=== PATIENT | female | born 2000 | race Two or more races ===

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

== ENCOUNTER 2019-04-17 10:08 | Emergency (ER) | payer MEDICAID ==
[~2019-04-17] VITALS: Ht 160 cm; Wt 59.0 kg
[~2019-04-17 10:08] MED LIST: PREN-96 PO
[2019-04-17 12:57] VITALS: BP 112/77
[2019-04-17] MEDS ORDERED: cefTRIAXone SOD 1,000 MG VL IM ONE (13:30)
== END 2019-04-17 14:02 | disposition home or self-care (01) ==
LOC: ER 10:08
DX: J03.90 Acute tonsillitis, unspecified (principal)
CPT/HCPCS: 81002; 81025; 96372; 99283; J0696

== ENCOUNTER 2019-12-17 18:16 | Emergency (ER) | payer MEDICAID ==
[~2019-12-17] VITALS: Ht 160 cm; Wt 63.5 kg
[2019-12-17 19:21] LABS: Eosinophils # (auto) 0.2 10 ^3/uL (0-0.8); Eosinophils % (auto) 1.6 % (0.0-7.0); White Blood Cell 13.5 10^3/uL (4.4-10.8)
[2019-12-17 19:22] LABS: Basophils # (auto) 0.1 10 ^3/uL (0-0.2); Basophils % (auto) 0.6 % (0.0-2.0); Hemoglobin 13.4 g/dL (12.2-16.2); Lymphocytes # (auto) 3.8 10 ^3/uL (0.4-5.4); Lymphocytes % (auto) 27.8 % (10.0-50.0); Mean Corpuscular Hemoglobin 25.1 pg (28.0-32.0); Mean Corpuscular Hgb Conc. 33.5 g/dL (32.0-36.0); Monocytes # (auto) 0.7 10 ^3/uL (0-1.3); Neutrophils # (auto) 8.8 10 ^3/uL (1.6-8.6); Nucleated Red Blood Cells % 0.1 %; Platelet Count (auto) 371 10^3/uL (140-450); Red Blood Cells 5.33 10^6/uL (4.0-5.20); Red Cell Distribution Width 14.3 % (11.8-14.3)
[2019-12-17 19:40] LABS: Albumin 4.1 g/dL (3.4-5.0); Calcium 8.8 mg/dL (8.5-10.1); Potassium 3.4 mmol/L (3.5-5.1)
[2019-12-17 19:43] LABS: BUN/Creatinine Ratio 14.9; Bilirubin, Total 0.2 mg/dL (0.2-1.0); Total Protein 7.8 g/dL (6.4-8.2)
[2019-12-17] MEDS ORDERED: POTASSIUM CHL 20 Meq TABLET PO ONE (20:00)
[2019-12-17 21:09] LABS: Urine Bacteria NONE SEEN /hpf (None Seen); Urine Blood 3+ /uL (Negative); Urine WBC 9 /hpf (0 - 5)
[2019-12-17 21:15] LABS: Amphetamine Screen, Urine NEGATIVE (NEGATIVE); Barbiturate Scree,Urine NEGATIVE (NEGATIVE); Benzodiazephine Screen, Urine NEGATIVE (NEGATIVE); Cannabinoid Screen, Urine NEGATIVE (NEGATIVE); Cocaine Screen, Urine NEGATIVE (NEGATIVE); Opiate Scree,Urine NEGATIVE (NEGATIVE); Phencyclidine Screen, Urine NEGATIVE (NEGATIVE)
[2019-12-17] MEDS ORDERED: cefTRIAXone SOD 1,000 MG VL IM ONE (21:45)
[2019-12-17 22:13] VITALS: BP 120/86
== END 2019-12-17 22:24 | disposition home or self-care (01) ==
LOC: ER 18:16
DX: N39.0 Urinary tract infection, site not specified (principal); N93.8 Other specified abnormal uterine and vaginal bleeding; E87.6 Hypokalemia; E86.0 Dehydration
CPT/HCPCS: 36415; 76830; 76856; 80053; 80307; 81001; 84702; 85025; 96372; 99284; J0696

== ENCOUNTER 2020-08-02 13:19 | Emergency (ER) | payer MEDICAID ==
[~2020-08-02] VITALS: Ht 160 cm; Wt 62.1 kg
[2020-08-02 13:45] VITALS: BP 130/83
[2020-08-02 13:54] LABS: Urine Bacteria MANY /hpf (None Seen); Urine Blood 1+ /uL (Negative); Urine Hyaline Cast FEW /lpf (0 - 2); Urine Mucus FEW (None Seen); Urine Specific Gravity 1.025 (1.001-1.035); Urine WBC 21 /hpf (0 - 5)
[2020-08-02 14:17] LABS: Basophils # (auto) 0.1 10 ^3/uL (0-0.2); Basophils % (auto) 0.7 % (0.0-2.0); Eosinophils # (auto) 0.1 10 ^3/uL (0-0.8); Eosinophils % (auto) 1.9 % (0.0-7.0); Hematocrit 38.7 % (36.0-46.0); Hemoglobin 13.1 g/dL (12.2-16.2); Lymphocytes # (auto) 2.5 10 ^3/uL (0.4-5.4); Lymphocytes % (auto) 33.6 % (10.0-50.0); Mean Corpuscular Hemoglobin 25.9 pg (28.0-32.0); Mean Corpuscular Hgb Conc. 33.8 g/dL (32.0-36.0); Mean Corpuscular Volume 76.8 fL (80.0-100.0); Monocytes # (auto) 0.4 10 ^3/uL (0-1.3); Monocytes % (auto) 4.7 % (0.0-12.0); Neutrophils # (auto) 4.5 10 ^3/uL (1.6-8.6); Neutrophils % (auto) 59.1 % (37.0-80.0); Nucleated Red Blood Cells % 0.1 %; Platelet Count (auto) 313 10^3/uL (140-450); Red Blood Cells 5.04 10^6/uL (4.0-5.20); White Blood Cell 7.5 10^3/uL (4.4-10.8)
[2020-08-02] MEDS ORDERED: cefTRIAXone SOD 1,000 MG VL IM ONE (14:45)
== END 2020-08-02 15:09 | disposition home or self-care (01) ==
LOC: ER 13:19
DX: O23.41 Unspecified infection of urinary tract in pregnancy, first trimester (principal); Z3A.01 Less than 8 weeks gestation of pregnancy
CPT/HCPCS: 36415; 81001; 81025; 84702; 85025; 96372; 99283; J0696

== ENCOUNTER 2020-08-04 16:31 | Emergency (ER) | payer MEDICAID ==
[~2020-08-04] VITALS: Ht 160 cm; Wt 63.5 kg
[2020-08-04 16:32] VITALS: BP 122/80
== END 2020-08-04 18:56 | disposition home or self-care (01) ==
LOC: ER 16:31
DX: O02.81 Inappropriate change in quantitative human chorionic gonadotropin (hCG) in early pregnancy (principal); Z3A.01 Less than 8 weeks gestation of pregnancy; Z79.899 Other long term (current) drug therapy
CPT/HCPCS: 36415; 84702

== ENCOUNTER 2020-08-11 16:12 | Emergency (ER) | payer MEDICAID ==
[~2020-08-11] VITALS: Ht 157.5 cm; Wt 63.5 kg
[2020-08-11 16:48] LABS: Urine Bacteria MANY /hpf (None Seen); Urine Blood Negative /uL (Negative); Urine Mucus FEW (None Seen); Urine Specific Gravity 1.016 (1.001-1.035)
[2020-08-11 16:53] LABS: Urine WBC 18 /hpf (0 - 5)
[2020-08-11 20:01] VITALS: BP 141/104
== END 2020-08-11 20:06 | disposition home or self-care (01) ==
LOC: ER 16:12
DX: O20.0 Threatened abortion (principal); O20.8 Other hemorrhage in early pregnancy; O23.41 Unspecified infection of urinary tract in pregnancy, first trimester; Z79.899 Other long term (current) drug therapy; Z3A.01 Less than 8 weeks gestation of pregnancy
CPT/HCPCS: 36415; 76801; 76817; 81001; 84702

== ENCOUNTER 2020-08-22 08:23 | Emergency (ER) | payer MEDICAID ==
[~2020-08-22] VITALS: Ht 160 cm; Wt 72.6 kg
[2020-08-22 09:09] LABS: Urine Bacteria FEW /hpf (None Seen); Urine Blood Negative /uL (Negative); Urine Specific Gravity 1.011 (1.001-1.035); Urine WBC 3 /hpf (0 - 5)
[2020-08-22 09:28] VITALS: BP 128/78
[2020-08-22] MEDS ORDERED: ACETAMINOPHEN 500 MG TAB PO ONE (09:45)
== END 2020-08-22 11:28 | disposition home or self-care (01) ==
LOC: ER 08:23
DX: O20.0 Threatened abortion (principal); O23.41 Unspecified infection of urinary tract in pregnancy, first trimester; Z3A.01 Less than 8 weeks gestation of pregnancy
CPT/HCPCS: 36415; 76801; 76817; 81001; 84702

== ENCOUNTER 2020-08-27 12:05 | Emergency (ER) | payer MEDICAID ==
[~2020-08-27] VITALS: Ht 160 cm; Wt 72.6 kg
[2020-08-27 13:05] LABS: Urine Bacteria NONE SEEN /hpf (None Seen); Urine Blood 3+ /uL (Negative); Urine Hyaline Cast FEW /lpf (0 - 2); Urine Specific Gravity 1.021 (1.001-1.035); Urine WBC 2 /hpf (0 - 5)
[2020-08-27 13:42] LABS: Basophils # (auto) 0.1 10 ^3/uL (0-0.2); Basophils % (auto) 0.7 % (0.0-2.0); Eosinophils # (auto) 0.2 10 ^3/uL (0-0.8); Monocytes # (auto) 0.4 10 ^3/uL (0-1.3); Neutrophils # (auto) 4.2 10 ^3/uL (1.6-8.6); White Blood Cell 7.7 10^3/uL (4.4-10.8)
[2020-08-27 13:44] LABS: Eosinophils % (auto) 2.9 % (0.0-7.0); Hemoglobin 12.6 g/dL (12.2-16.2); Lymphocytes # (auto) 2.8 10 ^3/uL (0.4-5.4); Lymphocytes % (auto) 36.7 % (10.0-50.0); Mean Corpuscular Hgb Conc. 33.3 g/dL (32.0-36.0); Mean Corpuscular Volume 78.1 fL (80.0-100.0); Monocytes % (auto) 5.3 % (0.0-12.0); Neutrophils % (auto) 54.4 % (37.0-80.0); Nucleated Red Blood Cells % 0.1 %; Platelet Count (auto) 327 10^3/uL (140-450); Red Blood Cells 4.86 10^6/uL (4.0-5.20); Red Cell Distribution Width 15.2 % (11.8-14.3)
[2020-08-27 13:45] LABS: Albumin 3.7 g/dL (3.4-5.0)
[2020-08-27 13:49] LABS: BUN/Creatinine Ratio 15.3; Bilirubin, Total 0.4 mg/dL (0.2-1.0); Total Protein 7.2 g/dL (6.4-8.2)
[2020-08-27 15:50] VITALS: BP 129/79
== END 2020-08-27 16:09 | disposition home or self-care (01) ==
LOC: ER 12:05
DX: O20.8 Other hemorrhage in early pregnancy (principal); O23.41 Unspecified infection of urinary tract in pregnancy, first trimester; Z3A.01 Less than 8 weeks gestation of pregnancy
CPT/HCPCS: 36415; 76801; 76817; 80053; 81001; 84702; 85025

== ENCOUNTER 2020-09-12 14:38 | Emergency (ER) | payer MEDICAID ==
[~2020-09-12] VITALS: Ht 160 cm; Wt 72.6 kg
[2020-09-12 16:22] LABS: Basophils # (auto) 0 10 ^3/uL (0-0.2); Basophils % (auto) 0.6 % (0.0-2.0); Eosinophils # (auto) 0.2 10 ^3/uL (0-0.8); Eosinophils % (auto) 2.6 % (0.0-7.0); Hematocrit 36.3 % (36.0-46.0); Hemoglobin 12.4 g/dL (12.2-16.2); Lymphocytes # (auto) 2.9 10 ^3/uL (0.4-5.4); Lymphocytes % (auto) 37.3 % (10.0-50.0); Mean Corpuscular Hemoglobin 26.1 pg (28.0-32.0); Mean Corpuscular Volume 76.8 fL (80.0-100.0); Monocytes # (auto) 0.5 10 ^3/uL (0-1.3); Monocytes % (auto) 6.2 % (0.0-12.0); Neutrophils # (auto) 4.2 10 ^3/uL (1.6-8.6); Neutrophils % (auto) 53.3 % (37.0-80.0); Nucleated Red Blood Cells % 0.2 %; Platelet Count (auto) 319 10^3/uL (140-450); Red Blood Cells 4.73 10^6/uL (4.0-5.20); Red Cell Distribution Width 14.6 % (11.8-14.3); White Blood Cell 7.9 10^3/uL (4.4-10.8)
[2020-09-12 17:50] VITALS: BP 126/80
[2020-09-12 19:07] LABS: Urine Bacteria NONE SEEN /hpf (None Seen); Urine Blood Negative /uL (Negative); Urine Specific Gravity 1.016 (1.001-1.035); Urine WBC <1 /hpf (0 - 5)
== END 2020-09-12 18:19 | disposition home or self-care (01) ==
LOC: ER 14:38
DX: O03.4 Incomplete spontaneous abortion without complication (principal); Z79.899 Other long term (current) drug therapy; Z3A.01 Less than 8 weeks gestation of pregnancy
CPT/HCPCS: 36415; 81001; 84702; 85025

== ENCOUNTER 2021-05-20 11:39 | Emergency (ER) | payer MEDICAID ==
[~2021-05-20] VITALS: Ht 160 cm; Wt 65.8 kg
[2021-05-20 13:33] LABS: Basophils # (auto) 0 10 ^3/uL (0-0.2); Eosinophils # (auto) 0.2 10 ^3/uL (0-0.8); Hemoglobin 13.3 g/dL (12.2-16.2); Monocytes # (auto) 0.4 10 ^3/uL (0-1.3)
[2021-05-20 13:35] LABS: Basophils % (auto) 0.8 % (0.0-2.0); Eosinophils % (auto) 2.4 % (0.0-7.0); Hematocrit 39.6 % (36.0-46.0); Lymphocytes # (auto) 2.7 10 ^3/uL (0.4-5.4); Lymphocytes % (auto) 42.3 % (10.0-50.0); Mean Corpuscular Hemoglobin 25.6 pg (28.0-32.0); Mean Corpuscular Hgb Conc. 33.7 g/dL (32.0-36.0); Mean Corpuscular Volume 76.1 fL (80.0-100.0); Monocytes % (auto) 6.2 % (0.0-12.0); Neutrophils # (auto) 3.1 10 ^3/uL (1.6-8.6); Neutrophils % (auto) 48.3 % (37.0-80.0); Nucleated Red Blood Cells % 0.4 %; Red Cell Distribution Width 14.4 % (11.8-14.3); White Blood Cell 6.4 10^3/uL (4.4-10.8)
[2021-05-20 13:37] LABS: Urine Bacteria NONE SEEN /hpf (None Seen); Urine Blood TRACE /uL (Negative); Urine Mucus FEW (None Seen); Urine WBC 1 /hpf (0 - 5)
[2021-05-20 13:43] LABS: Albumin 3.7 g/dL (3.4-5.0); BUN/Creatinine Ratio 14.9; Potassium 3.8 mmol/L (3.5-5.1)
[2021-05-20 13:46] LABS: Bilirubin, Total 0.3 mg/dL (0.2-1.0)
[2021-05-20 15:00] VITALS: BP 129/86
== END 2021-05-20 15:28 | disposition home or self-care (01) ==
LOC: ER 11:39
DX: R10.2 Pelvic and perineal pain (principal); Z79.899 Other long term (current) drug therapy
CPT/HCPCS: 36415; 76830; 76856; 80053; 81001; 84702; 85025

== ENCOUNTER 2021-08-13 20:50 | Emergency (ER) | payer MEDICAID ==
[~2021-08-13] VITALS: Ht 160 cm; Wt 68.0 kg
[2021-08-13 20:50] VITALS: BP 139/87
[2021-08-14] MEDS ORDERED: ACYC-166 PO (06:57)
[2021-08-14] MEDS ORDERED: PRED20TA2 PO (07:17)
[2021-08-14] MEDS ORDERED: GABA100C9 PO (07:17)
== END 2021-08-13 23:19 | disposition left against medical advice (07) ==
LOC: ER 20:57
DX: R21 Rash and other nonspecific skin eruption (principal); Z53.21 Procedure and treatment not carried out due to patient leaving prior to being seen by health care provider

== ENCOUNTER 2021-08-14 05:03 | Emergency (ER) | payer MEDICAID ==
[~2021-08-14] VITALS: Ht 160 cm; Wt 68.0 kg
[2021-08-14 05:06] VITALS: BP 128/84
[2021-08-14] MEDS ORDERED: methylPREDNISolone SOD SUCC 125 MG/2 ML VL IM ONE (06:45)
[2021-08-14] MEDS ORDERED: ACYC-166 PO (06:57)
[2021-08-14] MEDS ORDERED: GABA100C9 PO (07:17)
[2021-08-14] MEDS ORDERED: PRED20TA2 PO (07:17)
== END 2021-08-14 08:24 | disposition home or self-care (01) ==
LOC: ER 05:03
DX: B02.9 Zoster without complications (principal); Z79.899 Other long term (current) drug therapy
CPT/HCPCS: 81025

== ENCOUNTER 2022-11-13 09:10 | Observation (INO) | payer MEDICAID ==
[~2022-11-13 09:10] MED LIST changes: +GABA-1308 PO; +PRED20TA2 PO; +TRIA0.02 TOP
== END 2022-11-13 10:29 | disposition home or self-care (01) ==
LOC: LDRP 09:10 → UNDOADMOB 09:10 → LDRP 09:21 → UNDODISOB 10:29
PROVIDERS: ADMIT Obstetrics & Gynecology; ATTEND Obstetrics & Gynecology
DX: O34.63 Maternal care for abnormality of vagina, third trimester (principal); N89.8 Other specified noninflammatory disorders of vagina; O99.891 Other specified diseases and conditions complicating pregnancy; M79.89 Other specified soft tissue disorders; O26.893 Other specified pregnancy related conditions, third trimester; R10.2 Pelvic and perineal pain; Z3A.34 34 weeks gestation of pregnancy; Z87.891 Personal history of nicotine dependence
CPT/HCPCS: 59025; 81002; 94760; G0378

== ENCOUNTER 2022-12-12 08:24 | Inpatient (IN) | payer MEDICAID, OTHER ==
[~2022-12-12] VITALS: Ht 160 cm; Wt 83.0 kg
[2022-12-12] MEDS ORDERED: NIFEdipine 10 MG CAP PO PRN (09:15)
[2022-12-12] MEDS ORDERED: hydrALAZINE HCL 20 MG/ML VL IV PRN ×2 (09:15)
[2022-12-12 09:56] LABS: Basophils # (auto) 0.1 10 ^3/uL (0-0.2); Eosinophils # (auto) 0.1 10 ^3/uL (0-0.8); Eosinophils % (auto) 1.8 % (0.0-7.0); Hematocrit 40.3 % (36.0-46.0); Hemoglobin 13.4 g/dL (12.2-16.2); Lymphocytes # (auto) 1.9 10 ^3/uL (0.4-5.4); Lymphocytes % (auto) 28.1 % (10.0-50.0); Mean Corpuscular Hemoglobin 27.2 pg (28.0-32.0); Mean Corpuscular Hgb Conc. 33.3 g/dL (32.0-36.0); Mean Corpuscular Volume 81.7 fL (80.0-100.0); Monocytes # (auto) 0.5 10 ^3/uL (0-1.3); Monocytes % (auto) 7.8 % (0.0-12.0); Neutrophils # (auto) 4.1 10 ^3/uL (1.6-8.6); Neutrophils % (auto) 61.3 % (37.0-80.0); Nucleated Red Blood Cells % 0.1 %; Red Blood Cells 4.93 10^6/uL (4.0-5.20); Red Cell Distribution Width 16.2 % (11.8-14.3); White Blood Cell 6.7 10^3/uL (4.4-10.8)
[2022-12-12 10:05] LABS: Urine Bacteria FEW /hpf (None Seen); Urine Blood Negative /uL (Negative); Urine Clarity HAZY (Clear); Urine Color Yellow (Yellow); Urine Protein, UAD 3+ (Negative); Urine Specific Gravity 1.034 (1.001-1.035); Urine Urobilinogen Normal (Negative); Urine WBC 35 /hpf (0 - 5)
[2022-12-12 10:16] LABS: INR 0.9 (0.9-1.15); Partial Thromboplastin Time 32.1 SEC (24.5-34.5); Prothrombin Time 9.5 sec (9.3-11.8)
[2022-12-12 10:25] LABS: Alanine Aminotransferase 12 U/L (7-40); Alkaline Phosphatase 361 U/L (46-116); Anion Gap 8 (5-15); Aspartate Aminotransferase 23 U/L (13-40); BUN/Creatinine Ratio 6.8 (10.0-20.0); Bilirubin, Total 0.3 mg/dL (0.2-1.0); Blood Urea Nitrogen 5 mg/dL (9-23); Calcium 8.7 mg/dL (8.7-10.4); Carbon Dioxide 24 mmol/L (20-30); Chloride 107 mmol/L (98-107); Glucose 78 mg/dL (74-106); Potassium 4.4 mmol/L (3.5-5.1); Sodium 139 mmol/L (136-145); Total Protein 6.2 g/dL (5.7-8.2)
[2022-12-12 10:57] LABS: Fern Testing Negative
[2022-12-12] MEDS ORDERED: PROMETHAZINE HCL 25 MG/ML 1ML IV PRN (12:00)
[2022-12-12] MEDS ORDERED: LACT. RINGERS/OXYTOCIN 20UNITS 500 ML IV ONE ×2 (12:00→12:30)
[2022-12-12] MEDS ORDERED: BUTORPHANOL TARTRATE 2 MG/1 ML VIAL IV PRN ×2 (12:00)
[2022-12-12] MEDS ORDERED: LACTATED RINGER'S 1,000 ML IV SCH (12:00)
[2022-12-12] MEDS ORDERED: miSOPROStol 50 MCG per PRE-CUT 1/2 TAB PO PRN (12:00)
[2022-12-12] MEDS ORDERED: LIDOCAINE 2%HCL (LOCAL ANESTH.) INJ 20ML MDV IJ PRN (12:00)
[2022-12-12] MEDS ORDERED: PHISODERM TOP SOLN 240ML BTL TOP PRN (12:00)
[2022-12-12 12:07] LABS: Amphetamine Screen, Urine Neg (NEGATIVE); Benzodiazephine Screen, Urine Neg (NEGATIVE)
[2022-12-12 12:08] LABS: Barbiturate Scree,Urine Neg (NEGATIVE); Cocaine Screen, Urine Neg (NEGATIVE); Opiate Scree,Urine Neg (NEGATIVE); Phencyclidine Screen, Urine Neg (NEGATIVE)
[2022-12-12 12:09] LABS: Cannabinoid Screen, Urine Neg (NEGATIVE)
[2022-12-12 12:14] LABS: Protein, Urine 1944.3 mg/dL (0.0-11.9)
[2022-12-12 12:17] LABS: Creatinine, Urine 251.65 mg/dL (30.0-125.0); Urine Protein/Creatinine Ratio 7.73
[2022-12-12] MEDS: LABETALOL HCL 200 MG TAB PO SCH ×2 (12:52→22:00)
[2022-12-12 13:35] LABS: Albumin 3.8 g/dL (3.2-4.8)
[2022-12-12] MEDS ORDERED: MINERAL OIL TOPICAL 10ml TOP PRN (13:45)
[2022-12-12] MEDS ORDERED: fentaNYL CITRATE 100 MCG/2 ML VL IV PRN (13:45)
[2022-12-12] MEDS ORDERED: diphenhdrAMINE HCL 50 MG/1 ML VL IV PRN (13:45)
[2022-12-12] MEDS ORDERED: METHYLERGONOVINE MALEATE 0.2 MG/ML AMP IM PRN (13:45)
[2022-12-12] MEDS ORDERED: ACETAMINOPHEN 325 MG TAB PO PRN (13:45)
[2022-12-12] MEDS ORDERED: CARBOPROST TROMETHAMINE 250 MCG/1ML VIAL IM PRN ×2 (13:45→22:45)
[2022-12-12] MEDS ORDERED: ONDANSETRON HCL 4 MG/2 ML VIAL IV PRN (13:45)
[2022-12-12] MEDS ORDERED: PROMETHAZINE HCL 25 MG/ML 1ML IM PRN (13:45)
[2022-12-12] MEDS ORDERED: miSOPROStol 100 mcg TAB SL PRN (13:45)
[2022-12-12] MEDS ORDERED: TRANEXAMIC ACID 1,000 MG in SODIUM CHL 0.9% 100 ML IV PRN (13:45)
[2022-12-12 14:18] LABS: Creatinine, Urine 50.21 mg/dL (30.0-125.0)
[2022-12-12 14:20] LABS: Protein, Urine 518.5 mg/dL (0.0-11.9); Urine Protein/Creatinine Ratio 10.33
[2022-12-12] MEDS ORDERED: ROPIVACAINE HCL 200 ML EPI SCH (16:00)
[2022-12-12] MEDS ORDERED: ePHEDrine SULFATE 50 MG/ML AMP IV ONE (16:00)
[2022-12-12] MEDS ORDERED: NALOXONE HCL 0.4 MG/ML VIAL IV ONE (16:00)
[2022-12-12] MEDS ORDERED: LACT. RINGERS/OXYTOCIN 20UNITS 1,000 ML IV SCH (17:30)
[2022-12-12] MEDS ORDERED: TERBUTALINE SULFATE 1 MG/ML 1ML VIAL SC PRN (17:30)
[2022-12-12] MEDS: DERMOPLAST 60ML BOTTLE TOP PRN (22:41)
[2022-12-12] MEDS: WITCH HAZEL-GLYCERIN PAD TOP PRN (22:41)
[2022-12-12] MEDS ORDERED: MINERAL OIL TOPICAL 10ml TOP ONE (22:47)
[2022-12-13] MEDS: DIPHENOXYLATE W/ATROPINE 2.5 MG TAB PO SCH ×5 (00:16→18:00)
[2022-12-13] MEDS ORDERED: ceFAZolin 2 GM/D5W100ml 100 ML IV STA (00:17)
[2022-12-13] MEDS: MEPERIDINE HCL (50 MG/ML) 1 ML VIAL ONE ×2 (00:39→05:33)
[2022-12-13 00:41] LABS: Basophils # (auto) 0.1 10 ^3/uL (0-0.2); Basophils % (auto) 0.6 % (0.0-2.0); Eosinophils # (auto) 0 10 ^3/uL (0-0.8); Eosinophils % (auto) 0.2 % (0.0-7.0); Hemoglobin 12.1 g/dL (12.2-16.2); Lymphocytes # (auto) 1.6 10 ^3/uL (0.4-5.4); Lymphocytes % (auto) 10.8 % (10.0-50.0); Mean Corpuscular Hemoglobin 27.4 pg (28.0-32.0); Mean Corpuscular Hgb Conc. 32.8 g/dL (32.0-36.0); Mean Corpuscular Volume 83.5 fL (80.0-100.0); Monocytes # (auto) 0.8 10 ^3/uL (0-1.3); Monocytes % (auto) 5.7 % (0.0-12.0); Neutrophils % (auto) 82.7 % (37.0-80.0); Red Blood Cells 4.44 10^6/uL (4.0-5.20); Red Cell Distribution Width 16.1 % (11.8-14.3); White Blood Cell 14.5 10^3/uL (4.4-10.8)
[2022-12-13] MEDS ORDERED: MEPERIDINE HCL (25 MG/ML) 1ML VIAL IV ONE (00:45)
[2022-12-13] MEDS ORDERED: ACETAMINOPHEN 325 MG TAB PO PRN (01:15)
[2022-12-13] MEDS ORDERED: IBUPROFEN 600 MG TAB PO PRN (01:15)
[2022-12-13 01:21] LABS: INR 0.94 (0.9-1.15); Partial Thromboplastin Time 31.3 SEC (24.5-34.5); Prothrombin Time 9.9 sec (9.3-11.8)
[2022-12-13] MEDS: LABETALOL HCL 200 MG TAB PO SCH ×2 (01:21→13:30)
[2022-12-13] MEDS ORDERED: GENTAMICIN SULFATE IV NR (02:00)
[2022-12-13] MEDS ORDERED: SODIUM CHL 0.9% IV NR (02:00)
[2022-12-13] MEDS ORDERED: AMPICILLIN SOD 2GM INJ 2 GM in SODIUM CHL 0.9% 100 ML IV SCH (02:00)
[2022-12-13] MEDS ORDERED: AMPICILLIN SOD 1 GM VL ONE (02:13)
[2022-12-13] MEDS ORDERED: GENTAMICIN PER PHARMACY 0 ML IV SCH (03:00)
[2022-12-13 06:40] VITALS: BP 109/63; PULSE 83; RESP 18; TEMP 98.7
[2022-12-13 08:05] LABS: RPR Non Reactive (Non Reactive); Rubella Antibodies, IgG <0.90 index (Immune >0.99)
[2022-12-13] MEDS ORDERED: ACETAMINOPHEN IV 1000 MG/100ML (10MG/ML) IV PRN (09:15)
[2022-12-13] MEDS: AMPICILLIN SOD 2GM INJ 2 GM in SODIUM CHL 0.9% 100 ML IV SCH ×3 (09:35→20:41)
[2022-12-13 11:05] VITALS: BP 128/85; PULSE 71; RESP 18; TEMP 99.1
[2022-12-13] MEDS ORDERED: TRANEXAMIC ACID 1,000 mg/10ml INJ VIAL IV ONE (12:19)
[2022-12-13 15:09] LABS: Basophils # (auto) 0.1 10 ^3/uL (0-0.2); Basophils % (auto) 0.5 % (0.0-2.0); Eosinophils # (auto) 0.1 10 ^3/uL (0-0.8); Eosinophils % (auto) 0.6 % (0.0-7.0); Hematocrit 24.9 % (36.0-46.0); Hemoglobin 8.5 g/dL (12.2-16.2); Lymphocytes # (auto) 2.2 10 ^3/uL (0.4-5.4); Lymphocytes % (auto) 22.2 % (10.0-50.0); Mean Corpuscular Hemoglobin 27.8 pg (28.0-32.0); Mean Corpuscular Hgb Conc. 34.1 g/dL (32.0-36.0); Mean Corpuscular Volume 81.5 fL (80.0-100.0); Monocytes # (auto) 0.9 10 ^3/uL (0-1.3); Monocytes % (auto) 8.7 % (0.0-12.0); Neutrophils # (auto) 6.7 10 ^3/uL (1.6-8.6); Red Blood Cells 3.05 10^6/uL (4.0-5.20); Red Cell Distribution Width 15.6 % (11.8-14.3); White Blood Cell 9.8 10^3/uL (4.4-10.8)
[2022-12-13 15:15] VITALS: BP 126/82; PULSE 74; RESP 18; TEMP 98.1
[2022-12-13 19:00] VITALS: BP 123/70; PULSE 76; RESP 16; TEMP 98.3
[2022-12-13] MEDS ORDERED: SODIUM FERR GLUC 62.5MG/5ML 125 MG in SODIUM CHL 0.9% 100 ML IV ONE (20:15)
[2022-12-13] MEDS ORDERED: IBU600T PO (20:39)
[2022-12-13] MEDS ORDERED: PREN-96 PO (20:39)
[2022-12-13] MEDS ORDERED: FERR30CA PO (20:39)
[2022-12-13] MEDS ORDERED: DOCU-94 PO (20:44)
[2022-12-13] MEDS ORDERED: LABE100T4 PO (20:46)
[2022-12-13] MEDS: DOCUSATE SOD 100 MG CAP PO SCH (22:26)
[2022-12-13 23:00] VITALS: BP 126/77; PULSE 71; RESP 18; TEMP 98.6; O2SAT 95
[2022-12-14] VITALS (7 sets, daily range): BP systolic 122–138; BP diastolic 68–80; PULSE 46–80; RESP 16–17; TEMP 98–98.6; O2SAT 96–99
[2022-12-14] MEDS: LABETALOL HCL 200 MG TAB PO SCH ×2 (01:38→15:48)
[2022-12-14] MEDS: AMPICILLIN SOD 2GM INJ 2 GM in SODIUM CHL 0.9% 100 ML IV SCH ×3 (02:30→14:30)
[2022-12-14] MEDS: DIPHENOXYLATE W/ATROPINE 2.5 MG TAB PO SCH ×3 (06:00→12:00)
[2022-12-14] MEDS ORDERED: GENTAMICIN SULFATE IV ONE ×2 (08:00)
[2022-12-14] MEDS ORDERED: SODIUM CHL 0.9% IV ONE ×2 (08:00)
[2022-12-14] MEDS ORDERED: TETANUS-DIPTH-ACEL PERTUSSIS 0.5ML SYR Tdap IM ONE (15:15)
[2022-12-14] MEDS: FERROUS SULFATE 325mg EC TAB PO SCH (21:31)
[2022-12-14] MEDS: DERMOPLAST 60ML BOTTLE TOP PRN (21:31)
[2022-12-14] MEDS: DOCUSATE SOD 100 MG CAP PO SCH (21:31)
[2022-12-14] MEDS: WITCH HAZEL-GLYCERIN PAD TOP PRN (21:32)
[2022-12-15 02:55] VITALS: BP 134/74; PULSE 76; RESP 16; TEMP 98.4; O2SAT 98
[2022-12-15] MEDS: LABETALOL HCL 200 MG TAB PO SCH (03:31)
[2022-12-15 07:00] VITALS: BP 139/77; PULSE 83; RESP 17; TEMP 98.4; O2SAT 98
[2022-12-15] MEDS: FERROUS SULFATE 325mg EC TAB PO SCH (10:01)
[2022-12-15] MEDS: WITCH HAZEL-GLYCERIN PAD TOP PRN (10:05)
[2022-12-15 11:00] VITALS: BP 136/86; PULSE 70; RESP 17; TEMP 98.4; O2SAT 98
[2022-12-15 11:52] VITALS: BP 136/86; PULSE 70; RESP 16; TEMP 98.4; O2SAT 98
[2022-12-16 22:06] LABS: Treponema pallidum Ab (FTA-Ab) Non Reactive (Non Reactive)
== END 2022-12-15 11:48 | disposition home or self-care (01) | DRG 560 ==
LOC: ER 08:24 → LDRP 08:40 → UNDOADMOB 08:40 → LDRP 08:52 → OBSVTOIN 12:00 → LDRP 12:14
PROVIDERS: ADMIT Obstetrics & Gynecology; ATTEND Obstetrics & Gynecology
PROC: 10E0XZZ Delivery of Products of Conception, External Approach (ICD-10-PCS; principal; 2022-12-12)
PROC: 0HQ9XZZ Repair Perineum Skin, External Approach (ICD-10-PCS; 2022-12-12)
PROC: 3E0R3BZ Introduction of Anesthetic Agent into Spinal Canal, Percutaneous Approach (ICD-10-PCS; 2022-12-12)
PROC: 00HU33Z Insertion of Infusion Device into Spinal Canal, Percutaneous Approach (ICD-10-PCS; 2022-12-12)
DX: O14.14 Severe pre-eclampsia complicating childbirth (principal); Z37.0 Single live birth; O41.1230 Chorioamnionitis, third trimester, not applicable or unspecified; O72.1 Other immediate postpartum hemorrhage; R71.0 Precipitous drop in hematocrit; Z3A.38 38 weeks gestation of pregnancy; O77.0 Labor and delivery complicated by meconium in amniotic fluid; O70.0 First degree perineal laceration during delivery
CPT/HCPCS: 36415; 59025; 59200; 59409; 76805; 76818; 80053; 80170; 80307; 81001; 81002; 82570; 84112; 84156; 84550; 85025; 85610; 85730; 86592; 86703; 86762; 86850; 86900; 86901; 86920; 87340; 90715; 94760; 96360; 96361; 96365; 96366; 96372; 96374; C1726; G0378; J2405; J2590

== ENCOUNTER 2024-04-01 18:35 | Emergency (ER) | payer MEDICAID ==
[~2024-04-01] VITALS: Ht 160 cm; Wt 78.7 kg
[~2024-04-01 18:35] MED LIST changes: +DOCU-94 PO; +FERR30CA PO; -GABA-1308 PO; +IBU600T PO; +LABE100T7 PO; -PRED20TA2 PO; -TRIA0.02 TOP
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
[2024-04-01] MEDS: SILVER SULFADIAZINE 1 % TOPICAL CREAM 50GM TOP ONE (19:52)
[2024-04-01 20:10] VITALS: BP 121/84; PULSE 76; RESP 18; TEMP 97.3; O2SAT 97
== END 2024-04-01 20:10 | disposition home or self-care (01) ==
LOC: ER 18:35
DX: T23.221A Burn of second degree of single right finger (nail) except thumb, initial encounter (principal); T31.0 Burns involving less than 10% of body surface; Z79.899 Other long term (current) drug therapy; X10.2XXA Contact with fats and cooking oils, initial encounter; Y93.G3 Activity, cooking and baking; Y92.89 Other specified places as the place of occurrence of the external cause; Y99.8 Other external cause status
CPT/HCPCS: 16020